=== PATIENT | female | born 1965 | race Hispanic/Latino ===

== ENCOUNTER 2024-12-06 18:13 | Emergency (ER) | payer OTHER ==
[~2024-12-06] VITALS: Ht 152.4 cm; Wt 96.2 kg
[2024-12-06] MEDS: KETOROLAC TROMETHAMINE 30 MG/ML VIAL IV STA (18:55)
[2024-12-06] MEDS ORDERED: BENZONATATE200 MG PO (20:57)
[2024-12-06] MEDS ORDERED: VENTOLIN HFA18 GM INH (20:58)
[2024-12-06] MEDS ORDERED: ZITHROMAX250 MG PO (20:59)
[2024-12-06 21:06] VITALS: PULSE 68; RESP 18; TEMP 98.2
[2024-12-06] MEDS ORDERED: CEFTRIAXONE 1 GM VIAL ONE (21:13)
[2024-12-06] MEDS: AZITHROMYCIN 250 MG TAB PO ONE (21:20)
[2024-12-06] MEDS: ACETAMINOPHEN 325 MG TAB PO ONE (21:20)
[2024-12-06 21:46] VITALS: BP 136/70; PULSE 72; RESP 18; TEMP 98.4; O2SAT 95
== END 2024-12-06 21:46 | disposition home or self-care (01) ==
LOC: FSED 18:31
DX: R05.9 Cough, unspecified (principal); J20.9 Acute bronchitis, unspecified; Z11.52 Encounter for screening for COVID-19; R94.31 Abnormal electrocardiogram [ECG] [EKG]
CPT/HCPCS: 0223U; 71046; 80048; 80076; 83518; 84484; 85025; 87400; 87420; 99284; J0696; J1885; 93005